=== PATIENT | male | born 1955 | race Caucasian/White ===

== ENCOUNTER 2016-10-28 20:22 | Emergency (ER) | payer OTHER ==
[~2016-10-28] VITALS: Ht 185.4 cm; Wt 107.2 kg
[2016-10-28 20:25] VITALS: BP 183/98
== END 2016-10-28 20:55 | disposition left against medical advice (07) ==
LOC: EME 20:22
DX: S61.432A Puncture wound without foreign body of left hand, initial encounter (principal); W26.0XXA Contact with knife, initial encounter; Z79.01 Long term (current) use of anticoagulants; Z86.718 Personal history of other venous thrombosis and embolism; Z87.891 Personal history of nicotine dependence
CPT/HCPCS: 99281; 99283

== ENCOUNTER 2017-02-19 22:00 | Observation (INO) | payer OTHER ==
[~2017-02-19] VITALS: Ht 185.4 cm; Wt 108.7 kg
[2017-02-19 23:19] LABS: HEMATOCRIT 39.8 % (38.0-50.0); HEMOGLOBIN 14.1 G/DL (12.5-16.6); MCH 31.3 PG (29.0-34.0); MCHC 35.4 G/DL (30.0-36.0); MCV 88.4 FL (86-99); PLATELET COUNT 259 K/uL (156-360); WHITE BLOOD COUNT 5.3 K/uL (4.1-10.2)
[2017-02-19 23:25] LABS: INTER. NORMALIZED RATIO 1.8
[2017-02-19 23:27] LABS: D-DIMER ELISA < 150.00 ng/mLDDU (<230)
[2017-02-19 23:29] LABS: CHLORIDE 106 mEq/L (99-109); SODIUM 138 mEq/L (136-147)
[2017-02-19 23:31] LABS: GLUCOSE 107 mg/dL (70-99)
[2017-02-19 23:35] LABS: GFR ESTIMATE (CALCULATED) > 59 mL/min/ (58.99-99999)
[2017-02-19 23:36] LABS: UREA NITROGEN (BUN) 18 mg/dL (9-23)
[2017-02-19 23:43] LABS: TROP-I INTERPRETATION NEGATIVE; TROPONIN-I 0.01 ng/mL (0.0-0.30)
[2017-02-20 02:50] LABS: HDL CHOLESTEROL 46 MG/DL (Desirable>=40); LDL CHOLESTEROL 142 mg/dL (Desirable<100); NON-HDL CHOLESTEROL 166 mg/dL (Desirable<160); TOTAL CHOLESTEROL 212 mg/dL (Desirable<200); TRIGLYCERIDES 122 MG/DL (Normal: <150)
[2017-02-20 03:06] LABS: TROP-I INTERPRETATION NEGATIVE; TROPONIN-I < 0.01 ng/mL (0.0-0.30)
[2017-02-20 05:35] VITALS: BP 111/65
[2017-02-20 07:30] VITALS: BP 136/82
[2017-02-20 07:38] LABS: TROP-I INTERPRETATION NEGATIVE; TROPONIN-I < 0.01 ng/mL (0.0-0.30)
[2017-02-20 11:30] VITALS: BP 142/84
== END 2017-02-20 16:48 | disposition home or self-care (01) ==
LOC: EME 22:00 → ENPENDDIS 02-20 → EDOF 02-20 00:19 → ENRESERV 02-20 00:21 → 5WEST 02-20 01:46
PROVIDERS: Hospitalist; Physician Assistant
DX: R07.9 Chest pain, unspecified (principal); D68.61 Antiphospholipid syndrome; R00.2 Palpitations; R42 Dizziness and giddiness; Z79.01 Long term (current) use of anticoagulants; Z98.1 Arthrodesis status; Z83.3 Family history of diabetes mellitus; Z80.9 Family history of malignant neoplasm, unspecified; Z86.711 Personal history of pulmonary embolism; Z86.718 Personal history of other venous thrombosis and embolism; Z88.5 Allergy status to narcotic agent; Z91.030 Bee allergy status; Z91.041 Radiographic dye allergy status; Z87.891 Personal history of nicotine dependence
CPT/HCPCS: 70450; 71020; 80048; 80061; 84484; 85027; 85379; 85610; 93005; 93306; 93880; 99281; 99285; G0378